=== PATIENT | female | born 1965 | race Caucasian/White ===

== ENCOUNTER 2021-03-30 09:47 | Emergency (ER) | payer MEDICARE, MEDICAID, SELFPAY ==
[2021-03-30] VITALS (8 sets, daily range): BP systolic 114–139; BP diastolic 80–94; PULSE 73–110; RESP 17–19; TEMP 36.7–37; O2SAT 96–99; BMI 23.6
--- NOTE | 2021-03-30 10:27 | ED_ITS ---
HPI - Abdominal Pain General: Chief Complaint: Abdominal Pain Stated Complaint: THROAT BLOCKAGE/UNABLE TO SWALLOW Time Seen by Provider: 03/30/21 10:27 History of Present Illness: HPI narrative: difficulty swallowing Pertinent past history: none Location: Epigastric Severity: moderate Quality: cramping Radiation: epigastric Migration to: epigastric Exacerbating factors: eating Relieving factors: nothing Associated Symptoms: Reports anorexia and dyspepsia Review of Systems General: Reports: 10 or more systems reviewed and unremarkable except in HPI and below PFSH ED PFSH: Medical History Dyslipidemia GERD (gastroesophageal reflux disease) HTN (hypertension) LAFB (left anterior fascicular block) Rheumatoid arthritis Family History Mother Myocardial infarct Grandmother Myocardial infarct Social History Smoking and tobacco status: current every day smoker cigarettes Packs smoked per day: 1 Alcohol intake: never Physical Exam Const: COMMON NORMALS: no acute distress, patient oriented x3, no limitations and alert GENERAL APPEARANCE: cooperative and comfortable ORIENTATION/CONSCIOUSNESS: Yes awake, Yes oriented to person, Yes oriented to place and Yes oriented to time HENMT: COMMON NORMALS: normocephalic, atraumatic, external ears normal, EAC's normal, TM's normal bilaterally and Normal external nose present HEAD & SCALP: normal to inspection, normocephalic and atraumatic FACE & SINUS: normal facial exam, sinuses nontender and face symmetric NOSE: Normal external nose present, Normal nares present and No nasal discharge present EXTERNAL EAR: Yes external ears normal EXTERNAL AUDITORY CANAL: EAC's normal TYMPANIC MEMBRANE: TM's normal bilaterally MOUTH: Normal oral and palatal mucosa present, lip normal and tongue normal THROAT: posterior oropharynx normal, tonsils normal and uvula midline Eye: COMMON NORMALS: Equal, round and reactive pupils present, EOMs intact bilaterally and conjunctivae normal GENERAL EYE: appearance normal, both eyes and all related structures and normal light reflex EYELID: eyelids normal CONJUNCTIVA: Yes conjunctivae normal PUPIL: Yes Equal, round and reactive pupils present EOM: Yes EOM abnormal DIRECT OPHTHALMOSCOPY: Yes normal light reflex Neck/C-Spine: COMMON NORMALS: full ROM, no lymphadenopathy, supple, no meningeal signs, no JVD and Thyroid normal GENERAL: Yes normal visual inspection THYROID: Thyroid normal CERVICAL SPINE: Yes cervical ROM normal and Yes normal cervical lordosis Lymph: LYMPHATIC: no lymphadenopathy noted Chest: COMMONS NORMALS: normal inspection of the chest and normal palpation of entire chest wall Resp: COMMON NORMALS: normal respiratory effort, No retractions and clear to auscultation bilaterally AUSCULTATION: clear to auscultation bilaterally Cardio: COMMON NORMALS: no JVD, regular rate, regular rhythm, S1 normal heart sound present, S2 normal heart sound present, No gallops present (Cardio), No clicks present (Cardio), No murmurs present (Cardio), No rub (Cardio) and Peripheral pulses 2+ throughout RATE: regular rate RHYTHM: regular rhythm HEART SOUNDS: S1 normal heart sound present and S2 normal heart sound present PERIPHERAL PULSES: Peripheral pulses 2+ throughout GI: COMMON NORMALS: Normal to inspection, nondistended, normoactive bowel sounds present, Soft to palpation, non-tender and no masses PALPATION: Yes Soft to palpation : COMMON NORMALS: Yes no CVA tenderness and Yes normal external appearance BLADDER/KIDNEY EXAM: Yes no CVA tenderness Back/Pelvis: COMMON NORMALS: no CVA tenderness, thoracic and lumbar spine normal to inspection, no thoracic nor lumbar tenderness and thoraco-lumbar ROM normal Extremity: COMMON NORMALS: normal to inspection, full ROM, capillary refill normal, no joint enlargement, no clubbing, cyanosis or edema, no calf tenderness and no pedal edema GENERAL: Yes normal exam except as noted Neuro: COMMON NORMALS: patient oriented x3, moves all extremities, no focal motor deficits, no sensory deficits noted and gait normal SENSORIUM/ORIENTATION: Yes alert, Yes oriented to person, Yes oriented to place and Yes oriented to time MENINGEAL SIGNS: Yes no meningeal signs Psych: COMMON NORMALS: mental status grossly normal, Normal thought process present, cooperative, normal affect, speech normal and activity/motor behavior normal SPEECH: Yes normal speech THOUGHT PROCESS: Normal thought process present Skin: COMMON NORMALS: no rashes or lesions noted, no wounds and turgor normal GENERAL SKIN EXAM: no rashes or lesions noted and turgor normal Course ED course: Pt presents to ER with increase in difficulty swallowing. Has existing esophageal strictures but in the past 24 hours has increasingly become more difficult to even hold water down. PPI given, labs, and awaiting CT to rule out any acute findings. Vital Signs: Vital signs: Vital Signs Temperature 98.5 F 03/30/21 10:51 Pulse Rate 76 03/30/21 11:37 Respiratory Rate 17 03/30/21 11:37 Blood Pressure 125/80 03/30/21 11:37 Pulse Oximetry 99 03/30/21 11:37 MDM - Abdominal Pain Lab Data: Labs: Lab Results 03/30/21 03/30/21 11:27 11:27 WBC 11.6 10^3/uL H 10 ^3/uL (4.0-10.0) RBC 4.21 10^6/uL 10^6 /uL (4.1-5.3) Hgb 14.2 g/dL g/dL (11.5-15.3) Hct 42.5 % % (37.0-47.0) MCV 101.0 fl H fl (81-99) MCH 33.7 pg pg (28.0-34.0) MCHC 33.4 g/dL g/dL (30.0-36.0) RDW 14.0 % % (12.1-15.1) Plt Count 340 10^3/cmm 10^3 /cmm (130-400) MPV 10.7 fL H fL (7.4-10.4) Neut % (Auto) 76.7 % % Lymph % (Auto) 12.1 % % [place] % (Auto) 9.3 % % Eos % (Auto) 1.1 % % Baso % (Auto) 0.5 % % Neut # (Auto) 8.88 10^3/uL H 10 ^3/uL (1.8-7.7) Lymph # (Auto) 1.4 10^3/uL 10^3/ uL (0.8-4.8) [place] # (Auto) 1.1 10^3/uL H 10^ 3/uL (0.2-0.9) Eos # (Auto) 0.1 10^3/uL 10^3/ uL (0.0-0.8) Baso # (Auto) 0.1 10^3/uL 10^3/ uL (0.0-0.1) Nucleated RBC % (a uto) 0 % % Nucleated RBCs # 0.0 /100WBC /100W BC Sodium 140 mmol/L mmol/L (136-145) Potassium 3.8 mmol/L mmol/L (3.5-5.1) Chloride 102 mmol/L mmol/L (98-107) Carbon Dioxide 24 mmol/L mmol/L (22-29) Anion Gap 17.8 (5-19) BUN 8 mg/dL mg/dL (6-20) Creatinine 0.8 mg/dL mg/dL (0.5-0.9) GFR Calculation 74.5 mL/min L mL/ min (90-130) Glucose 83 mg/dL mg/dL (65-115) Calculated Osmolal ity 287 mOsm/kg mOsm/ kg (285-295) Calcium 9.1 mg/dL mg/dL (8.5-10.5) Total Bilirubin 1.1 mg/dL mg/dL (0.15-1.2) AST 13 U/L U/L (0-32) ALT 7 U/L U/L (0-33) Alkaline Phosphata se 90 IU/L IU/L (35-105) Total Protein 7.3 g/dL g/dL (6.6-8.7) Albumin 3.8 g/dL g/dL (3.5-5.2) Globulin 3.5 g/dL g/dL (1.3-4.6) Discharge Plan Discharge Prescriptions: No Action hydrocodone-acetaminophen 7.5-325 mg/15 mL solution 15 ml PO Q6H PRNRF: 0 prednisone 5 mg tablet 5 mg PO BID RF: 0 Xeljanz 10 mg tablet 10 mg PO BID RF: 0 atorvastatin 40 mg tablet 40 mg PO DAILY RF: 0 carvedilol 3.125 mg tablet 3.125 mg PO BID RF: 0 lisinopril 5 mg tablet 5 mg PO DAILY RF: 0 nitroglycerin 0.4 mg tablet, sublingual 0.4 mg SUBLINGUAL Q5M PRN (Reason: chest pain) Qty: 25 RF: 3 methotrexate PO RF: 0 Coding Level of Care Code ED Trimming Press Operator for Chg Fwd Exam Comprehensive
[2021-03-30] MEDS: sodium chloride 0.9% 500 ML 999 ML IV (11:32)
[2021-03-30] MEDS: pantoprazole 40 mg SDV IVP (11:33)
[2021-03-30 11:51] LABS: Basophils # 0.1 10^3/uL (0.0-0.1); Basophils % 0.5 %; Eosinophils # 0.1 10^3/uL (0.0-0.8); Eosinophils % 1.1 %; Hematocrit 42.5 % (37.0-47.0); Hemoglobin 14.2 g/dL (11.5-15.3); Lymphocytes # 1.4 10^3/uL (0.8-4.8); Lymphocytes % 12.1 %; Mean Corpuscular HGB Conc 33.4 g/dL (30.0-36.0); Mean Corpuscular Hemoglobin 33.7 pg (28.0-34.0); Mean Platelet Volume 10.7 fL (7.4-10.4); Monocytes # 1.1 10^3/uL (0.2-0.9); Monocytes % 9.3 %; Neutrophils # 8.88 10^3/uL (1.8-7.7); Neutrophils % 76.7 %; Nucleated Red Blood Cells % 0 %; Platelet Count 340 10^3/cmm (130-400); Red Blood Count 4.21 10^6/uL (4.1-5.3); White Blood Count 11.6 10^3/uL (4.0-10.0)
[2021-03-30 12:14] LABS: Alanine Aminotransferase 7 U/L (0-33); Albumin Level 3.8 g/dL (3.5-5.2); Alkaline Phosphatase 90 IU/L (35-105); Anion Gap 17.8 (5-19); Aspartate Amino Transferase 13 U/L (0-32); Blood Urea Nitrogen 8 mg/dL (6-20); Calcium 9.1 mg/dL (8.5-10.5); Carbon Dioxide 24 mmol/L (22-29); Chloride 102 mmol/L (98-107); Globulin 3.5 g/dL (1.3-4.6); Glomerular Filtration Rate 74.5 mL/min (90-130); Glucose 83 mg/dL (65-115); Osmolality Calculated 287 mOsm/kg (285-295); Potassium 3.8 mmol/L (3.5-5.1); Sodium 140 mmol/L (136-145); Total Bilirubin 1.1 mg/dL (0.15-1.2); Total Protein 7.3 g/dL (6.6-8.7)
--- NOTE | 2021-03-30 12:50 | FL_ITS ---
WS: [id number] Exam: FL barium swallow [id number] Date/Time of Exam: 03/30/2021 12:58 PM Reason For Exam: difficulty swallow Fluoroscopy time: minutes Limited Gastrografin esophagram performed under fluoroscopy. There is a severe stricture of the distal esophagus just above the GE junction with almost complete o bstruction. Although this could be a benign stricture, underlying esophageal malignancy with strictur e could have this appearance also. The remaining esophagus was patent with normal mucosal pattern. Co ntrast spills into the stomach. FL/FL barium swallow [id number] IMPRESSION: 1. Severe stricture of the distal esophagus just above the GE junction. This co uld be a benign or malignant stricture. Endoscopic evaluation and biopsy would be indicated. These findings were discussed by phone with AME Barrera the attending ER caregiver at 1:30 PM 03/30/2021
--- NOTE | 2021-03-30 13:05 | W.ED.ABDPA2 ---
HPI - Abdominal Pain General: Chief Complaint: Abdominal Pain Stated Complaint: THROAT BLOCKAGE/UNABLE TO SWALLOW Time Seen by Provider: 03/30/21 10:27 History of Present Illness: Severity: moderate Quality: cramping Migration to: epigastric Exacerbating factors: eating Relieving factors: nothing Associated Symptoms: Reports GI cramping, heartburn and nausea Review of Systems General: Reports: 10 or more systems reviewed and unremarkable except in HPI and below GI: Reports: nausea, dysphagia, heartburn and GI cramping PFSH ED PFSH: Medical History Dyslipidemia GERD (gastroesophageal reflux disease) HTN (hypertension) LAFB (left anterior fascicular block) Rheumatoid arthritis Family History Mother Myocardial infarct Grandmother Myocardial infarct Social History Smoking and tobacco status: current every day smoker cigarettes Packs smoked per day: 1 Alcohol intake: never Physical Exam Const: COMMON NORMALS: no acute distress, patient oriented x3, no limitations and alert GENERAL APPEARANCE: cooperative and comfortable ORIENTATION/CONSCIOUSNESS: Yes awake, Yes oriented to person, Yes oriented to place and Yes oriented to time HENMT: COMMON NORMALS: normocephalic, atraumatic, external ears normal, EAC's normal, TM's normal bilaterally and Normal external nose present HEAD & SCALP: normal to inspection, normocephalic and atraumatic FACE & SINUS: normal facial exam, sinuses nontender and face symmetric NOSE: Normal external nose present, Normal nares present and No nasal discharge present EXTERNAL EAR: Yes external ears normal EXTERNAL AUDITORY CANAL: EAC's normal TYMPANIC MEMBRANE: TM's normal bilaterally MOUTH: Normal oral and palatal mucosa present, lip normal and tongue normal THROAT: posterior oropharynx normal, tonsils normal and uvula midline Eye: COMMON NORMALS: Equal, round and reactive pupils present, EOMs intact bilaterally and conjunctivae normal GENERAL EYE: appearance normal, both eyes and all related structures and normal light reflex EYELID: eyelids normal CONJUNCTIVA: Yes conjunctivae normal PUPIL: Yes Equal, round and reactive pupils present EOM: Yes EOM abnormal DIRECT OPHTHALMOSCOPY: Yes normal light reflex Neck/C-Spine: COMMON NORMALS: full ROM, no lymphadenopathy, supple, no meningeal signs, no JVD and Thyroid normal GENERAL: Yes normal visual inspection THYROID: Thyroid normal CERVICAL SPINE: Yes cervical ROM normal and Yes normal cervical lordosis Lymph: LYMPHATIC: no lymphadenopathy noted Chest: COMMONS NORMALS: normal inspection of the chest and normal palpation of entire chest wall Resp: COMMON NORMALS: normal respiratory effort, No retractions and clear to auscultation bilaterally AUSCULTATION: clear to auscultation bilaterally Cardio: COMMON NORMALS: no JVD, regular rate, regular rhythm, S1 normal heart sound present, S2 normal heart sound present, No gallops present (Cardio), No clicks present (Cardio), No murmurs present (Cardio), No rub (Cardio) and Peripheral pulses 2+ throughout RATE: regular rate RHYTHM: regular rhythm HEART SOUNDS: S1 normal heart sound present and S2 normal heart sound present PERIPHERAL PULSES: Peripheral pulses 2+ throughout GI: COMMON NORMALS: Normal to inspection, nondistended, normoactive bowel sounds present, Soft to palpation, non-tender and no masses PALPATION: Yes Soft to palpation : COMMON NORMALS: Yes no CVA tenderness and Yes normal external appearance BLADDER/KIDNEY EXAM: Yes no CVA tenderness Back/Pelvis: COMMON NORMALS: no CVA tenderness, thoracic and lumbar spine normal to inspection, no thoracic nor lumbar tenderness and thoraco-lumbar ROM normal Extremity: COMMON NORMALS: normal to inspection, full ROM, capillary refill normal, no joint enlargement, no clubbing, cyanosis or edema, no calf tenderness and no pedal edema GENERAL: Yes normal exam except as noted Neuro: COMMON NORMALS: patient oriented x3, moves all extremities, no focal motor deficits, no sensory deficits noted and gait normal SENSORIUM/ORIENTATION: Yes alert, Yes oriented to person, Yes oriented to place and Yes oriented to time MENINGEAL SIGNS: Yes no meningeal signs Psych: COMMON NORMALS: mental status grossly normal, Normal thought process present, cooperative, normal affect, speech normal and activity/motor behavior normal SPEECH: Yes normal speech THOUGHT PROCESS: Normal thought process present Skin: COMMON NORMALS: no rashes or lesions noted, no wounds and turgor normal GENERAL SKIN EXAM: no rashes or lesions noted and turgor normal Course ED course: Pt presents with complaints of difficulty swallowing, increasingly worse over the past 24 hours. Unable to hold water down. PPI was given with no resolution. Barium swallow ordered and will proceed with CT if indicated. Reevaluation(s): Reevaluation #1: [facility] is full, we are going to attempt to call [facility] for an interventional GI specialist as her Barium swallow reveals severe strictures and malignancy cannot be ruled out. Pt is aware of the importance of further work up and is stable at this time; laughing and talking. Time: 14:07 Reevaluation #2: We continue to await a bed to become available. pt is aware of delays. She is very stable but to due severity of her swallow study it may be more harmful to not send her for further work up. Awaiting callback from [facility]. Time: 15:01 Reevaluation #3: Pt resting comfortably and in NAD. I have discussed the case with Dr. Watkins, my ER attending and we will continue to look for placement. She remains stable and it is possible that she may be able to go home if she is able to tolerate fluid and follow up as an outpatient to an outside facility. Time: 16:02 Consultations: Consultation #1: [facility] [place], [place] Dr. White has accepted. Will transfer once ambulance available. Pt updated. Time: 16:18 Vital Signs: Vital signs: Vital Signs Temperature 98.5 F 03/30/21 10:51 Pulse Rate 77 03/30/21 14:08 Respiratory Rate 17 03/30/21 14:08 Blood Pressure 129/83 03/30/21 14:08 Pulse Oximetry 96 03/30/21 14:08 MDM - Abdominal Pain Lab Data: Labs: Lab Results 03/30/21 03/30/21 11:27 11:27 WBC 11.6 10^3/uL H 10 ^3/uL (4.0-10.0) RBC 4.21 10^6/uL 10^6 /uL (4.1-5.3) Hgb 14.2 g/dL g/dL (11.5-15.3) Hct 42.5 % % (37.0-47.0) MCV 101.0 fl H fl (81-99) MCH 33.7 pg pg (28.0-34.0) MCHC 33.4 g/dL g/dL (30.0-36.0) RDW 14.0 % % (12.1-15.1) Plt Count 340 10^3/cmm 10^3 /cmm (130-400) MPV 10.7 fL H fL (7.4-10.4) Neut % (Auto) 76.7 % % Lymph % (Auto) 12.1 % % [place] % (Auto) 9.3 % % Eos % (Auto) 1.1 % % Baso % (Auto) 0.5 % % Neut # (Auto) 8.88 10^3/uL H 10 ^3/uL (1.8-7.7) Lymph # (Auto) 1.4 10^3/uL 10^3/ uL (0.8-4.8) [place] # (Auto) 1.1 10^3/uL H 10^ 3/uL (0.2-0.9) Eos # (Auto) 0.1 10^3/uL 10^3/ uL (0.0-0.8) Baso # (Auto) 0.1 10^3/uL 10^3/ uL (0.0-0.1) Nucleated RBC % (a uto) 0 % % Nucleated RBCs # 0.0 /100WBC /100W BC Sodium 140 mmol/L mmol/L (136-145) Potassium 3.8 mmol/L mmol/L (3.5-5.1) Chloride 102 mmol/L mmol/L (98-107) Carbon Dioxide 24 mmol/L mmol/L (22-29) Anion Gap 17.8 (5-19) BUN 8 mg/dL mg/dL (6-20) Creatinine 0.8 mg/dL mg/dL (0.5-0.9) GFR Calculation 74.5 mL/min L mL/ min (90-130) Glucose 83 mg/dL mg/dL (65-115) Calculated Osmolal ity 287 mOsm/kg mOsm/ kg (285-295) Calcium 9.1 mg/dL mg/dL (8.5-10.5) Total Bilirubin 1.1 mg/dL mg/dL (0.15-1.2) AST 13 U/L U/L (0-32) ALT 7 U/L U/L (0-33) Alkaline Phosphata se 90 IU/L IU/L (35-105) Total Protein 7.3 g/dL g/dL (6.6-8.7) Albumin 3.8 g/dL g/dL (3.5-5.2) Globulin 3.5 g/dL g/dL (1.3-4.6) Imaging Data ^: Other Xray: Radiologist's impression: [address] [address] Fluoroscopy Report Signed Patient: Sheryl Warner Unit #: [id number] : 1965 Age/Sex: 55 / F ADM Date: 03/30/21 Loc: ER Room/Bed: Attending Dr: Ordering Provider/Ordering MD: Mayte Caldwell NP Date of Service: 03/30/21 Procedure(s): FL barium swallow [id number] Accession Number(s): [id number] Report Number: [id number] WS: [id number] Exam: FL barium swallow [id number] Date/Time of Exam: 03/30/2021 12:58 PM Reason For Exam: difficulty swallow Fluoroscopy time: minutes Limited Gastrografin esophagram performed under fluoroscopy. There is a severe stricture of the distal esophagus just above the GE junction with almost complete obstruction. Although this could be a benign stricture, underlying esophageal malignancy with stricture could have this appearance also. The remaining esophagus was patent with normal mucosal pattern. Contrast spills into the stomach. FL/FL barium swallow [id number] IMPRESSION: 1. Severe stricture of the distal esophagus just above the GE junction. This could be a benign or malignant stricture. Endoscopic evaluation and biopsy would be indicated. These findings were discussed by phone with AME Barrera the attending ER caregiver at 1:30 PM 03/30/2021 Dictated By: Angelito Schmitz DO Signed By: Angelito Schmitz DO Signed Date/Time: 03/30/21 1330 DD/ 1324 Discharge Plan Discharge Patient Disposition: Transfer to ED Clinical Impression: Stricture esophagus Condition: Stable Prescriptions: No Action hydrocodone-acetaminophen 7.5-325 mg/15 mL solution 15 ml PO Q6H PRNRF: 0 prednisone 5 mg tablet 5 mg PO BID RF: 0 Xeljanz 10 mg tablet 10 mg PO BID RF: 0 atorvastatin 40 mg tablet 40 mg PO DAILY RF: 0 carvedilol 3.125 mg tablet 3.125 mg PO BID RF: 0 lisinopril 5 mg tablet 5 mg PO DAILY RF: 0 nitroglycerin 0.4 mg tablet, sublingual 0.4 mg SUBLINGUAL Q5M PRN (Reason: chest pain) Qty: 25 RF: 3 methotrexate PO RF: 0 Referrals: Herlinda Clay DO [Primary Care Provider] - Coding Level of Care Code ED Frontend Engineer for Chg Fwd Exam Comprehensive
[2021-03-30] MEDS: diatrizoate meglumine 120 mL Sol PO (13:25)
[2021-03-30] MEDS: sodium chloride 0.9% 1,000 ML 75 ML IV (16:21)
== END 2021-03-30 18:25 ==
PROVIDERS: Emergency Provider Nurse Practitioner Family; PCP Family Medicine
DX: R10.9 Unspecified abdominal pain (principal); E78.5 Hyperlipidemia, unspecified; I10 Essential (primary) hypertension; F17.210 Nicotine dependence, cigarettes, uncomplicated
CPT/HCPCS: 74220; 80053; 85025; 96361; 96374; 99285; C9113; J7030; J7040; Q9963

== ENCOUNTER → 2022-10-16 09:22 | Outpatient (BNVA) | payer MEDICARE, MEDICAID, SELFPAY | PROVIDERS: PCP Family Medicine; Visit Provider Podiatrist Foot & Ankle Surgery | DX: M06.9 Rheumatoid arthritis, unspecified; M19.071 Primary osteoarthritis, right ankle and foot; M19.072 Primary osteoarthritis, left ankle and foot; M20.11 Hallux valgus (acquired), right foot; M20.12 Hallux valgus (acquired), left foot; M77.41 Metatarsalgia, right foot; M77.42 Metatarsalgia, left foot | CPT/HCPCS: 73610; 99204 ==

== ENCOUNTER → 2022-12-27 09:09 | Outpatient (BNVA) | payer MEDICARE, MEDICAID, SELFPAY | PROVIDERS: PCP Family Medicine; Visit Provider Surgery | DX: R13.10 Dysphagia, unspecified (principal); K21.9 Gastro-esophageal reflux disease without esophagitis | CPT/HCPCS: 99203; 99214 ==

== ENCOUNTER → 2023-01-01 08:48 | Outpatient (BNVA) | payer MEDICARE, MEDICAID, SELFPAY | PROVIDERS: PCP Family Medicine; Visit Provider Surgery | DX: R13.10 Dysphagia, unspecified (principal) | CPT/HCPCS: 99213 ==

== ENCOUNTER 2023-01-03 08:33 | Day surgery (SDC) | payer MEDICARE, MEDICAID, SELFPAY ==
[2023-01-02 12:44] VITALS: BMI 29.0
[2023-01-03 08:53] VITALS: BP 145/94; PULSE 102; RESP 18; TEMP 36.5; O2SAT 98
[2023-01-03] MEDS: sodium chloride 0.9% 1,000 ML 30 ML IV (09:09)
--- NOTE | 2023-01-03 09:10 | W.PM.OPSUD ---
Surgery/Procedure H&P Update DATE OF PROCEDURE: January 03, 2023 DATE H&P PERFORMED: 01/01/23 H&P UPDATE INFORMATION: I have reviewed H&P completed within last 30 days, I have examined patient prior to procedure, No changes to prior documentation and H&P is in [facility] EMR on date indicated PLANNED PROCEDURE: Operation Date: 01/03/23 10:20 [place] [id number] egd w/balloon dial R13.10,K21.9(Not Applicable) - Titus Meek MD
[2023-01-03 11:52] VITALS: BP 129/95; PULSE 97; RESP 18; TEMP 36.1; O2SAT 98
[2023-01-03 12:00] VITALS: BP 128/95; PULSE 93; RESP 18; O2SAT 97
[2023-01-03 12:09] VITALS: BP 114/96; PULSE 93; RESP 18; O2SAT 100
--- NOTE | 2023-01-03 13:53 | P.ANESASSM_ITS ---
Pre-Anesthetic Assessment Height/Weight: Height 1.55 m Weight 69.853 kg Temp Pulse Resp BP Pulse Ox O2 Del Method 97.0 F L 93 18 114/96 100 Room Air 01/03/23 11:52 01/03/23 12:09 01/03/23 12:09 01/03/23 12:09 01/03/23 12:09 01/03/23 12:09 Operation Date: 01/03/23 10:20 Proposed Procedures p [id number] egd w/balloon dial R13.10,K21.9(Not Applicable) - Titus Meek MD Familial anesthetic complications: none Was Beta Leticia taken within 24 hours: N/A Was Clonidine taken within 24 hours: N/A Last intake: Intake Last Liquid Date 01/03/23 Last Liquid Time 06:00 Last Solid Date 01/02/23 Last Solid Time 23:00 Social Tobacco and No alcohol Exam alert, oriented x 3 and regular rate & rhythm Airway Submandibular: within normal limits Cervical ROM: within normal limits Mallampati: Class II Dentition: false (upper) Pulmonary Chronic Obstructive Pulmonary Disease CV/HEM Hypertension GI Gastroesophageal Reflux Disease Metabolic Hyperlipidemia chronic steroids [facility] [place] Rheumatoid Arthritis Anesthetic Plan ASA status: 3 Medications/Allergies Home Medications Medication Instructions Recorded Confirmed Last Taken Type nitroglycerin 0.4 mg sublingual 0.4 mg sublingual Q5M PRN chest 08/26/19 01/02/23 Unknown Rx tablet pain #25 tabs prednisone 5 mg tablet 5 mg PO BID 08/26/19 01/02/23 01/03/23 06:00 History hydrocodone 7.5 mg-acetaminophen 0.5 tab PO BID PRN Pain 03/30/21 01/02/23 01/02/23 History 325 mg tablet adalimumab 40 mg/0.4 mL 10 mg SUBCUT .[id number] 12/27/22 01/02/23 12/24/22 History subcutaneous pen kit (Humira(CF) Pen) pantoprazole 40 mg tablet,delayed 40 mg PO BID 6 weeks #84 tabs 12/27/22 01/02/23 01/02/23 Rx release (Protonix) nicotine 1 patch transdermal DAILY 01/02/23 01/02/23 01/02/23 History 21mg/24hr-14mg/24hr-7mg/24hr daily transderm patches,sequentl Allergies Allergy/AdvReac Type Severity Reaction Status Date / Time tramadol Allergy Unknown Verified 01/01/23 10:17 [facility] Anesthesia Medical History (Updated 12/27/22 @ 09:38 by Tra Padilla DO) Dyslipidemia GERD (gastroesophageal reflux disease) HTN (hypertension) LAFB (left anterior fascicular block) Rheumatoid arthritis Surgical History (Updated 12/27/22 @ 09:38 by Tra Padilla DO) History of esophagogastroduodenoscopy (EGD) Family History Mother Myocardial infarct Grandmother Myocardial infarct Social History Smoking and tobacco status: current every day smoker cigarettes Packs smoked per day: 1 Alcohol intake: never Substance/Drug Use: never Data Anesthesia Cardiac Studies: No Data to Display
--- NOTE | 2023-01-03 13:56 | ANE.PACU2 ---
Inpatient post-anesthesia follow up: Airway intact: Yes Vital signs: Temperature 97.0 F Pulse Rate 93 Respiratory Rate 18 Blood Pressure 114/96 Pulse Oximetry 100 Oxygen Delivery Me thod Room Air Oxygen Flow Rate Fraction of Inspir ed Oxygen Hydration adequate: Yes Nausea and vomiting: No Pain level: 2 Mental status: Baseline
== END 2023-01-03 12:22 | disposition home or self-care (01) ==
PROVIDERS: PCP Family Medicine; Visit Provider Surgery
DX: R13.10 Dysphagia, unspecified (principal); K21.9 Gastro-esophageal reflux disease without esophagitis; J44.9 Chronic obstructive pulmonary disease, unspecified; I10 Essential (primary) hypertension; E78.5 Hyperlipidemia, unspecified; M06.9 Rheumatoid arthritis, unspecified; F17.210 Nicotine dependence, cigarettes, uncomplicated
CPT/HCPCS: 43239; 88305; 88313; 88342; J2704; J7030

== ENCOUNTER → 2023-01-07 14:06 | Outpatient (BNVA) | payer MEDICARE, MEDICAID, SELFPAY | PROVIDERS: PCP Family Medicine; Visit Provider Podiatrist Foot & Ankle Surgery | DX: M19.071 Primary osteoarthritis, right ankle and foot; M19.072 Primary osteoarthritis, left ankle and foot; M20.11 Hallux valgus (acquired), right foot; M20.12 Hallux valgus (acquired), left foot; M77.41 Metatarsalgia, right foot; M77.42 Metatarsalgia, left foot | CPT/HCPCS: 99213 ==

== ENCOUNTER → 2023-01-10 16:01 | Outpatient (BNVA) | payer MEDICARE, MEDICAID, SELFPAY | PROVIDERS: PCP Family Medicine; Visit Provider Surgery | DX: K22.70 Barrett's esophagus without dysplasia (principal); Z09 Encounter for follow-up examination after completed treatment for conditions other than malignant neoplasm | CPT/HCPCS: 99212 ==

== ENCOUNTER → 2023-04-08 12:21 | Outpatient (BNVA) | payer MEDICARE, MEDICAID, SELFPAY | PROVIDERS: PCP Family Medicine; Visit Provider Podiatrist Foot & Ankle Surgery | DX: M19.071 Primary osteoarthritis, right ankle and foot; M19.072 Primary osteoarthritis, left ankle and foot; M20.11 Hallux valgus (acquired), right foot; M20.12 Hallux valgus (acquired), left foot; M77.41 Metatarsalgia, right foot; M77.42 Metatarsalgia, left foot | CPT/HCPCS: 99213 ==